=== PATIENT | male | born 1965 | race Two or more races ===

== ENCOUNTER 2021-09-23 08:30 | Outpatient (RCR) | payer BC, SELFPAY ==
--- NOTE | 2021-08-04 17:29 | PTOPEVAL ---
PHYSICAL THERAPY EVALUATION AND PLAN OF CARE Thank you for referring Reba Mondragon to [facility].? The patient is scheduled to be seen for therapy? 1x/wk every 2-3wks for 8 wks. Please review, sign, date and return this plan of care PANCHO. I agree with and certify that the following plan of care is medically necessary. Referring Physician Date Attending Provider: Cristofer Maher MD Evaluation Diagnosis increased voiding Onset 5years Additional Evaluation Detail tool room machinist: Nichol Pisano # [id number] Subjective Information States that he goes to the Query Text:As Reported By Patient/ bathroom too much. States Family that he goes to the bathroom about every hour through the night and through the day. Usually it is just the normal urge to urinate and others it is more painful and urgent. When asked he states that he feels like there is a lot of fluid that he voids but there are interruptions in his stream and he has to wait for the stream to continue. States that he is hesitant to drink too much water because he will be in the bathroom all day if he drinks more. States that he does not leak urine. States that he drinks a cup of coffee, a soda, and one glass of water a day. had a coloscopy: normal; prostate testing: normal Pain Score 0: Self Report provided patient with Query Text:Record Sets, Repetitions, education and information on Resistance and Position health bladder habits including drinking 8 glasses of water a day (he may need to work up to that from 1 glass a day) to dilute urine; that ideally when he urinates the stream will last at least 8 seconds of a steady stream, and that a full bladder shoulder hold about 2 cups of fluid. second hand out on pelvic floor muscles and positioning including advice to fully
--- NOTE | 2021-09-23 09:04 | PCPTNOTE ---
Patient did not show up for scheduled appointment this date.
--- NOTE | 2021-09-23 17:54 | PCPTNOTE ---
PHYSICAL THERAPY DISCHARGE NOTE Attending Provider: Cristofer Maher MD Patient:Reba Mondragon Date of :1965 Patient has not returned for any further treatments since 08/27/2021, therefore will be discharged at this time. Patient?s initial visit was on 08/04/2021 and had a total of 2 visits. At his last attended visit he noted that he did not see any changes his symptoms of feeling significant urgency and frequency of urination. He reported to me that he felt like he was following all instructions for pelvic floor contractions and working on using urge incontinence strategies and he saw now change. He tried to increase water intake but felt like it made it have more urgency/frequency so went back to very little liquids in a day. Thank you for referring this patient to [facility]. Please review, sign, date and return this discharge summary PANCHO. I have been updated about the patient's current status and I agree with discharge from the above service at this time. Referring Physician Date
== END 2021-10-19 09:21 | disposition home or self-care (01) ==
LOC: ANHPT 08:30
PROVIDERS: PCP Family Medicine Sports Medicine; Visit Provider Urology
DX: R39.198 Other difficulties with micturition (principal)
CPT/HCPCS: 97112; 97163; 97530